=== PATIENT | male | born 1975 | race Caucasian/White ===

== ENCOUNTER 2020-09-24 03:31 | Emergency (ER) | payer SELFPAY ==
[2020-09-24 03:41] VITALS: BP 155/106; PULSE 83; RESP 16; TEMP 36.7; O2SAT 97; BMI 31.8
[2020-09-24 03:51] VITALS: PULSE 71
[2020-09-24 03:56] VITALS: BP 165/107; PULSE 72; RESP 18; O2SAT 96
[2020-09-24 04:22] VITALS: RESP 16; O2SAT 76
[2020-09-24] MEDS: oxyCODONE-APAP 5-325 mg Tablet 2 TAB PO (04:22)
[2020-09-24] MEDS: ketorolac 60 mg/2 mL INJ IM (04:23)
--- NOTE | 2020-09-24 04:30 | XRR_ITS ---
PROCEDURE INFORMATION: Exam: XR Right Wrist Exam date and time: 09/24/2020 4:33 AM Age: 44 years old Clinical indication: Right; Prior surgery; Surgery type: Tendon excision as a child; Patient HX: C/O worsening wrist pain for last three days. No injury. ; Additional info: R wrist pain swelling TECHNIQUE: Imaging protocol: XR Right wrist. Views: 3 or more views. COMPARISON: No relevant prior studies available. FINDINGS: Bones/joints: No acute fracture, subluxation, periosteal reaction or osseous erosion. Soft tissues: Normal. XR/XR wrist RT min 3V* [id number] IMPRESSION: No acute fracture, subluxation, periosteal reaction or osseous erosion.
--- NOTE | 2020-09-24 04:30 | W.ED.EXTPRO ---
HPI - Extremity Problem General: Chief complaint: Extremity Injury, Upper Stated complaint: right wrist pain Time Seen by Provider: 09/24/20 03:55 History of Present Illness: HPI Narrative: 44-year-old male who gives a history of having multiple tendons cut on the dorsum of his right wrist when he was in third grade. He underwent extensive surgery, and has had intermittent problems with wrist pain since that time. He notes that the past few days his wrist is been increasingly tender and sore. This past evening, his wrist pain became acutely much worse he complains of pain, pain with straightening his fingers, and pain with movement of the wrist. There is no complaint of numbness or tingling he has noted some swelling in the past day or so. MD Complaint: extremity swelling, joint swelling and joint pain Onset (ago): day(s) Pain Consistency: constant Location: right Quality: aching Relieving factors: nothing Exacerbating factors: range of motion Associated symptoms: Deny chest pain, fever(s), myalgias, rash or short of breath Review of Systems Const: Denies: fever(s) Card: Denies: chest pain Resp: Denies: dyspnea Skin/Breast: Denies: rash Physical Exam Const: COMMON NORMALS: no acute distress, patient oriented x3 and alert Chest: COMMONS NORMALS: normal inspection of the chest Resp: COMMON NORMALS: normal respiratory effort, No retractions and No use of accessory muscles Cardio: COMMON NORMALS: regular rate RATE: regular rate Extremity: NARRATIVE EXTREMITY EXAM: Exam the right wrist reveals tenderness over the dorsum wrist, mainly over the scapholunate area. There is mild swelling present. There is mild warmth compared to the other side there is no tenderness over the first dorsal compartment. There is some pain with passive extension of the fingers, although this is not out of proportion Neuro: COMMON NORMALS: patient oriented x3 SENSORIUM/ORIENTATION: Yes alert Course Vital Signs: Vital signs: Vital Signs Temperature 98.1 F 09/24/20 03:41 Pulse Rate 72 09/24/20 03:56 Respiratory Rate 17 09/24/20 05:26 Blood Pressure 165/107 09/24/20 03:56 Pulse Oximetry 76 L 09/24/20 04:22 MDM - Extremity (Nontraumatic) MDM Narrative: Medical decision making narrative: X-ray of the wrist is normal. CRP is 1. White blood cell count is 8 sed rate and rheumatoid factor are pending peer pain is improved. His uric acid is elevated. Without an elevation in CRP, and pending sed rate, unsure of the clinical significance. We will go ahead and treat with a tapering dose of steroid Lab Data: Labs: Lab Results 09/24/20 09/24/20 09/24/20 Range/Units 04:29 04:29 04:29 WBC 8.1 (4.0-10.0) 10^3/ uL RBC 5.40 H (4.1-5.3) 10^6/u L Hgb 16.6 (11.7-16.6) g/dL Hct 48.1 (42.0-52.0) % MCV 89.1 (80-94) fL MCH 30.7 (28.0-34.0) pg MCHC 34.5 (30.0-36.0) g/dL RDW 12.9 (12.1-15.1) % Plt Count 168 (130-400) 10^3/c mm MPV 10.8 H (7.4-10.4) fL Neut % (Auto) 63.9 % Lymph % (Auto) 20.7 % Caldwell % (Auto) 9.9 % Eos % (Auto) 4.7 % Baso % (Auto) 0.6 % Neut # (Auto) 5.19 (1.8-7.7) 10^3/u L Lymph # (Auto) 1.7 (0.8-4.8) 10^3/u L Caldwell # (Auto) 0.8 (0.2-0.9) 10^3/u L Eos # (Auto) 0.4 (0.0-0.8) 10^3/u L Baso # (Auto) 0.1 (0.0-0.1) 10^3/u L Nucleated RBC % (a uto) 0 % Nucleated RBCs # 0.0 /100WBC ESR 6 (0-10) mm/hr Sodium (136-145) mmol/L Potassium (3.5-5.1) mmol/L Chloride (98-107) mmol/L Carbon Dioxide (22-29) mmol/L Anion Gap (5-19) BUN (6-20) mg/dL Creatinine (0.7-1.2) mg/dL GFR Calculation (90-130) mL/min Glucose (65-115) mg/dL Calculated Osmolal ity (285-295) mOsm/k g Uric Acid (3.4-7.0) mg/dL Calcium (8.5-10.5) mg/dL Total Bilirubin (0.15-1.2) mg/dL AST (0-40) U/L ALT (0-41) U/L Alkaline Phosphata se (40-130) IU/L C-Reactive Protein (0.0-4.9) mg/L Total Protein (6.6-8.7) g/dL Albumin (3.5-5.2) g/dL Globulin (1.3-4.6) g/dL Rheumatoid Factor 10.0 (0-14) IU/mL 09/24/20 Range/Units 04:29 WBC (4.0-10.0) 10^3/ uL RBC (4.1-5.3) 10^6/u L Hgb (11.7-16.6) g/dL Hct (42.0-52.0) % MCV (80-94) fL MCH (28.0-34.0) pg MCHC (30.0-36.0) g/dL RDW (12.1-15.1) % Plt Count (130-400) 10^3/c mm MPV (7.4-10.4) fL Neut % (Auto) % Lymph % (Auto) % Caldwell % (Auto) % Eos % (Auto) % Baso % (Auto) % Neut # (Auto) (1.8-7.7) 10^3/u L Lymph # (Auto) (0.8-4.8) 10^3/u L Caldwell # (Auto) (0.2-0.9) 10^3/u L Eos # (Auto) (0.0-0.8) 10^3/u L Baso # (Auto) (0.0-0.1) 10^3/u L Nucleated RBC % (a uto) % Nucleated RBCs # /100WBC ESR (0-10) mm/hr Sodium 136 (136-145) mmol/L Potassium 3.4 L (3.5-5.1) mmol/L Chloride 101 (98-107) mmol/L Carbon Dioxide 26 (22-29) mmol/L Anion Gap 12.4 (5-19) BUN 11 (6-20) mg/dL Creatinine 0.9 (0.7-1.2) mg/dL GFR Calculation 92.1 (90-130) mL/min Glucose 122 H (65-115) mg/dL Calculated Osmolal ity 283 L (285-295) mOsm/k g Uric Acid 7.8 H (3.4-7.0) mg/dL Calcium 8.2 L (8.5-10.5) mg/dL Total Bilirubin 0.6 (0.15-1.2) mg/dL AST 37 (0-40) U/L ALT 61 H (0-41) U/L Alkaline Phosphata se 47 (40-130) IU/L C-Reactive Protein 1.0 (0.0-4.9) mg/L Total Protein 7.0 (6.6-8.7) g/dL Albumin 3.9 (3.5-5.2) g/dL Globulin 3.1 (1.3-4.6) g/dL Rheumatoid Factor (0-14) IU/mL Discharge Plan Discharge Patient Disposition: Home Clinical Impression: Pain in wrist joint Qualifiers: Laterality: right Qualified Code(s): M25.531 - Pain in right wrist Condition: Stable Prescriptions: New [employer] 5-325 mg tablet 1 tab PO Q6H Qty: 7 RF: 0 Medrol (Gustavo) 4 mg tablets,dose pack See Rx Instructions .ROUTE .COMPLEX Qty: 21 RF: 0 Discharge Orders: Discharge ED (Routine); Ordered 09/24/20 Ordered By: Prudencio Ponce Discharge Diet: Usual diet Discharge Activity: Increase activity as tolerated Patient Instructions: Arthralgia (ED), Opioid Safety Activity Restrictions/Additional Instructions: Medications as directed. Return for worsening pain despite treatment, worsening swelling despite treatment, fever, rash, other concerning symptoms. Coding Level of Care Code ED Network Security Officer for Isaac Fwsofie Exam Expanded Problem Focused
[2020-09-24 04:46] LABS: Basophils # 0.1 10^3/uL (0.0-0.1); Basophils % 0.6 %; Eosinophils # 0.4 10^3/uL (0.0-0.8); Eosinophils % 4.7 %; Hematocrit 48.1 % (42.0-52.0); Hemoglobin 16.6 g/dL (11.7-16.6); Lymphocytes # 1.7 10^3/uL (0.8-4.8); Lymphocytes % 20.7 %; Mean Corpuscular HGB Conc 34.5 g/dL (30.0-36.0); Mean Corpuscular Hemoglobin 30.7 pg (28.0-34.0); Mean Corpuscular Volume 89.1 fL (80-94); Mean Platelet Volume 10.8 fL (7.4-10.4); Monocytes # 0.8 10^3/uL (0.2-0.9); Monocytes % 9.9 %; Neutrophils # 5.19 10^3/uL (1.8-7.7); Neutrophils % 63.9 %; Nucleated Red Blood Cells % 0 %; Platelet Count 168 10^3/cmm (130-400); Red Cell Distribution Width 12.9 % (12.1-15.1); White Blood Count 8.1 10^3/uL (4.0-10.0)
[2020-09-24 04:57] LABS: Alanine Aminotransferase 61 U/L (0-41); Albumin Level 3.9 g/dL (3.5-5.2); Alkaline Phosphatase 47 IU/L (40-130); Anion Gap 12.4 (5-19); Aspartate Amino Transferase 37 U/L (0-40); Blood Urea Nitrogen 11 mg/dL (6-20); Calcium 8.2 mg/dL (8.5-10.5); Carbon Dioxide 26 mmol/L (22-29); Chloride 101 mmol/L (98-107); Globulin 3.1 g/dL (1.3-4.6); Glomerular Filtration Rate 92.1 mL/min (90-130); Glucose 122 mg/dL (65-115); Osmolality Calculated 283 mOsm/kg (285-295); Potassium 3.4 mmol/L (3.5-5.1); Sodium 136 mmol/L (136-145); Total Bilirubin 0.6 mg/dL (0.15-1.2); Uric Acid 7.8 mg/dL (3.4-7.0)
[2020-09-24 05:26] VITALS: RESP 17
[2020-09-24 05:43] LABS: Erythrocyte Sedimentation Rate 6 mm/hr (0-10)
[2020-09-24 05:55] VITALS: BP 161/117; PULSE 70; RESP 17; O2SAT 95
== END 2020-09-24 05:55 | disposition home or self-care (01) ==
PROVIDERS: Emergency Provider Emergency Medicine
DX: M25.531 Pain in right wrist (principal)
CPT/HCPCS: 73110; 80053; 84550; 85025; 85651; 86140; 86431; 96372; 99283; J1885